=== PATIENT | female | born 1970 | race Caucasian/White ===

== ENCOUNTER 2016-08-02 07:56 | Emergency (ER) | payer MEDICAID, OTHER ==
[~2016-08-02] VITALS: Ht 154.9 cm; Wt 81.5 kg
[~2016-08-02 07:56] MED LIST: ISON300T72 PO; MULT1TAB59 PO; PREN1TAB67 PO
[2016-08-02 08:03] VITALS: Ht 154.9 cm; Wt 81.5 kg
[2016-08-02] MEDS ORDERED: ONDANSETRON (ODT) 4 MG TAB ODT STA (08:26)
[2016-08-02] MEDS ORDERED: ACETAMINOPHEN 325 MG TAB PO ONE (08:30)
[2016-08-02] MEDS ORDERED: ONDA8TAB14 PO (09:15)
[2016-08-02] MEDS ORDERED: ACET500C5 PO (09:15)
[2016-08-02] MEDS ORDERED: LOPE2CAP PO (09:15)
--- NOTE | 2016-08-02 09:18 | ERD ---
ER Documentation Chief Complaint Date/Time DATE: 08/02/16 TIME: 09:17 Chief Complaint GENERALIZED ABD PAIN, VOMITTING AND DIARRHEA SINCE TUESDAY HPI This 46-year-old female presents with epigastric pain, vomiting diarrhea for last 2 days. She is here with her to children with similar symptoms. There is no blood or mucus in the diarrhea and the vomit is nonbilious nonbloody. ROS All systems reviewed and are negative except as per history of present illness. Medications Home Meds Active Scripts Loperamide Hcl* (Imodium*) 2 Mg Capsule, 2 MG PO .WITH EACH DIARRHEA Y for DIARRHEA for 4 Days, CAP MAX 16 mg/day Prov:OBDULIA ECHAVARRIA MD 08/02/16 Acetaminophen* (Tylophen*) 500 Mg Capsule, 1 CAP PO Q6H Y for PAIN AND OR ELEVATED TEMP, #15 CAP Prov:OBDULIA ECHAVARRIA MD 08/02/16 Ondansetron (Ondansetron Odt) 8 Mg Tab.rapdis, 8 MG PO Q6H Y for NAUSEA AND/OR VOMITING, #6 TAB Prov:OBDULIA ECHAVARRIA MD 08/02/16 Reported Medications Vits W-Ca,Fe,Fa(<1MG) ( Formula) 1 Each Tablet, 1 EACH PO DAILY 07/24/13 Isoniazid* (Isoniazid*) 300 Mg Tablet, 300 MG PO DAILY, #1 TAB 07/14/13 Multivitamins* (Multivitamins*) 1 Tab Tablet, 1 TAB PO DAILY 12/31/11 Allergies Allergies: Coded Allergies: aspirin (Verified Allergy, Mild, RASH, 12/31/11) PMhx/Soc History of Surgery: Yes (hand surgery) Anesthesia Reaction: No Hx Neurological Disorder: No Hx Respiratory Disorders: No Hx Cardiac Disorders: No Hx Psychiatric Problems: No Hx Miscellaneous Medical Probl: No Hx Alcohol Use: No Hx Substance Use: No Hx Tobacco Use: No Smoking Status: Never smoker Physical Exam Vitals Vital Signs Date Time Temp Pulse Resp B/P Pulse Ox O2 Delivery O2 Flow Rate FiO2 08/02/16 08:03 98.0 61 18 138/65 98 Physical Exam Const: [] Alert, [id number] . Morbidly obese Head: Atraumatic Eyes: Normal Conjunctiva ENT: Normal External Ears, Nose and Mouth. Neck: Full range of motion..~ No meningismus. Resp: Clear to auscultation bilaterally Cardio: Regular rate and rhythm, no murmurs Abd: Soft, non tender, non distended. Normal bowel sounds Skin: No petechiae or rashes Back: No midline or flank tenderness Ext: No cyanosis, or edema Neur: Awake and alert Psych: Normal Mood and Affect Results 24 hrs Current Medications Medications (Trade) Dose Ordered Sig/Gina Route PRN Reason Start Time Stop Time Status Last Admin Dose Admin Ondansetron HCl (Zofran Odt) 8 mg ONCE STAT ODT 08/02/16 08:26 08/02/16 08:27 DC 08/02/16 08:33 Acetaminophen (Tylenol Tab) 650 mg ONCE ONCE PO 08/02/16 08:30 08/02/16 08:31 DC 08/02/16 08:33 Procedures/MDM Patient presents with vomiting diarrhea for 2 days and epigastric pain. Signs and symptoms do not suggest hepatobiliary disease, appendicitis, acute abdomen. Given additional family members with similar symptoms I suspect viral gastroenteritis. She will be treated with Imodium and Zofran and Tylenol and further observation at home. The patient was stable with no new complaints during the ER course. Clinically, there is no current evidence to suggest meningitis, sepsis, acute abdomen, pneumonia, acute coronary syndrome, pulmonary embolism, or any other emergent condition appearing to require further evaluation or hospitalization. The patient should certainly return for any new or worsening symptoms per the aftercare instructions. They should otherwise follow-up with her primary care doctor for reevaluation this week. Departure Diagnosis: Primary Impression: Vomiting and diarrhea Additional Impression: Abdominal pain Abdominal location: epigastric Qualified Code: R10.13 - Epigastric pain Condition: Stable Patient Instructions: Diarrhea, Viral (Child) (Adult) Additional Instructions: probablamente un virus que dura 2-4 hines. cheque otro nannette el proximo jett para mas simptomas- vomito, dolor, jamal, problemas con respirando, o con mckay doctor primario. OBDULIA ECHAVARRIA MD Aug 02, 2016 09:18
[2016-08-02 09:27] VITALS: BP 138/71; PULSE 71; RESP 18
== END 2016-08-02 09:28 | disposition home or self-care (01) ==
LOC: FTE 07:56
DX: R11.10 Vomiting, unspecified (principal); R19.7 Diarrhea, unspecified; R10.13 Epigastric pain
CPT/HCPCS: Z7610 ×2; 99283

== ENCOUNTER 2017-05-18 07:31 | Emergency (ER) | END 2017-05-18 09:08 | disposition home or self-care (01) ==